=== PATIENT | female | born 1990 | race Caucasian/White ===

== ENCOUNTER 2022-05-29 10:50 | Emergency (ER) | payer OTHER, SELFPAY ==
[2022-05-29 10:58] VITALS: BP 160/104; PULSE 75; RESP 20; TEMP 36.4; O2SAT 96; BMI 26.6
--- NOTE | 2022-05-29 11:04 | ED_ITS ---
HPI - General Adult General Time Seen by Provider: 11:05 Date Seen: 05/29/22 Chief complaint: Nausea/Vomiting Stated complaint: Vomiting blood Time Seen by Provider: 05/29/22 11:04 Source: patient and RN notes reviewed Mode of arrival: ambulatory Limitations: no limitations History of Present Illness HPI narrative: Patient is a 31-year-old female coming in with hematemesis. She states she threw up last night after eating, food came right back up. This morning she had other episodes of emesis. Two had blood in them, her last emesis coming into the parking lot here to be seen in the ED was just yellowish. She notes at least for last couple weeks she has been having nausea and vomiting at night and in the morning. She does get regurgitant episodes where she feels stuff coming up in her throat, this is before any vomiting type symptoms. She has been having problems for weeks per report. She does have looser stools baseline. She had a normal formed stool earlier this morning, a 2nd looser stool that did look a little darker. She has no abdominal pain. She drinks daily, has been drinking vodka, 2 drinks a night. She notes she used to like fireball but that started coming up immediately after drinking it. [facility], was [facility] be [facility] next [facility]. She did call them today and they recommended being seen in our ER per her report. She has never had an EGD before. She states she is quite anxious. Related Data Previous Rx's Medication Instructions Recorded omeprazole 40 mg capsule,delayed 40 mg PO DAILY #14 caps 05/29/22 release ondansetron HCl 4 mg tablet 4 mg PO Q8H PRN nausea and 05/29/22 vomiting #30 tabs Allergies Allergy/AdvReac Type Severity Reaction Status Date / Time No Known Drug Allergies Allergy Verified 05/29/22 11:02 Review of Systems Status of ROS: Reports: 10 or more systems reviewed and unremarkable except as noted in History and below Exam Const: Vital Signs, click to edit/add: Vital Signs - 24 hr 05/29/22 10:58 Temperature 97.5 F L Pulse Rate [Right Pulse Oximeter] 75 Respiratory Rate 20 Blood Pressure [Le ft Upper Arm] 160/104 H Pulse Oximetry 96 Oxygen Delivery Me thod Room Air Documenting provider has reviewed patient's vital signs: yes Common normals: no apparent distress, average body habitus, oriented x3, no limitations and alert General appearance: cooperative, comfortable, well kempt, well developed and anxious HENMT: Common normals: normocephalic, head/scalp atraumatic, hearing grossly normal bilaterally, moist oral mucous membranes, oropharynx normal, dentition normal and gingiva normal Head and scalp: normocephalic and atraumatic Eye: Common normals: PERRL, EOMs intact bilaterally, conjunctivae normal and no scleral icterus Conjunctiva: conjunctiva(e) normal Pupil: PERRL Neck & C-Spine: Common normals: full ROM, no lymphadenopathy, supple, no meningeal signs, no JVD and thyroid normal Thyroid: thyroid normal Resp: Common normals: normal respiratory effort, no retractions, no use of accessory muscles and clear to auscultation bilaterally Auscultation: clear to auscultation bilaterally Cardio: Common normals: no JVD, regular rate, regular rhythm, S1 normal heart sound, S2 normal heart sound, no gallops, no clicks and no murmurs Rate: regular rate Rhythm: regular rhythm Heart sounds: S1 normal and S2 normal GI: Common normals: Normal to inspection, nondistended, normoactive bowel sounds present, soft to palpation, non-tender, no hepatosplenomegaly and no masses Palpation: soft and no hepatosplenomegaly Neuro: Common normals: oriented x3 Sensorium/orientation: alert Meningeal signs: no meningeal signs Psych: Appearance: well kempt Mood and affect: anxious and tearful Course Course Hospital Course: Reviewed with patient that we will get full complement of labs. She is not feeling nauseated at this time. Reviewed with her that there certainly seems to be underlying reflux pathology based on her history. The vomiting that she has been having could have induced a [place] tear, there could be underlying gastritis, underlying ulcer disease, possible affects of alcoholism with consideration for esophageal varices. We will be giving her 80 mg IV Protonix. I have discussed with her that she ultimately will likely need an EGD. Based on her history, her current presentation, do not feel that this needs to happen emergently unless we see further episodes of bleeding or evidence of decompensation. She became quite tearful, stating she did not want anesthesia, was worried she would not wake up. I tried to reassure her spent some time talking about the process of EGD. Again, this will not likely happen today based on the fact that patient is stable at this time but await our workup as well as the fact that we are not set up for emergent EGDs. Reevaluation(s) Reevaluation #1: Nursing staff requested Zofran, 4 mg IV was ordered. Patient reportedly just vomited, no blood noted. Time: 11:33 Reevaluation #2: Reviewed patient's ultrasound report, fatty liver, normal gallbladder. Reviewed her mildly elevated liver transaminases, need for consideration of alcohol cessation, via treatment if needed. Discussed chemical dependency treatment is not something that we place people in, she needs to be willing and want the results of treatment for it to be beneficial. [facility] and they can help assist her on this if need be. She is requesting that we schedule an EGD here, she will contact the [facility] and get this cleared and if not will cancel in go through the [facility]. if her current hematemesis, will need emergent re-evaluation. At this time she is stable for further out patient evaluation. Patient was resting comfortably when I went back in to talk to her. She states she has had 2 episodes of emesis here, none with blood. Time: 13:45 Vital Signs Vital signs: Initial Vital Signs Temperature 97.5 F L 05/29/22 10:58 Temperature Source Temporal Artery Scan 05/29/22 10:58 Pulse Rate 75 05/29/22 10:58 Pulse Rhythm Regular 05/29/22 10:58 Pulse Strength 3+ Normal 05/29/22 10:58 Respiratory Rate 20 05/29/22 10:58 Blood Pressure 160/104 H 05/29/22 10:58 Blood Pressure Mean 122 05/29/22 10:58 Blood Pressure Position Sitting 05/29/22 10:58 Pulse Oximetry 96 05/29/22 10:58 Oxygen Delivery Method Room Air 05/29/22 10:58 Vital Signs Temperature 97.5 F L 05/29/22 10:58 Pulse Rate 75 05/29/22 10:58 Respiratory Rate 20 05/29/22 10:58 Blood Pressure 160/104 H 05/29/22 10:58 Pulse Oximetry 96 05/29/22 10:58 Oxygen Delivery Method Room Air 05/29/22 10:58 Temperature 97.5 F L 05/29/22 10:58 Pulse Rate 75 05/29/22 10:58 Respiratory Rate 20 05/29/22 10:58 Blood Pressure 160/104 H 05/29/22 10:58 Pulse Oximetry 96 05/29/22 10:58 Oxygen Delivery Method Room Air 05/29/22 10:58 Medical Decision Making Lab Data Lab results reviewed: Yes I reviewed the patient's lab results Labs: Lab Results 05/29/22 05/29/22 Range/Units 11:05 11:27 WBC 3.54 L (4.50-11.00) K/uL RBC 3.59 L (4.00-5.20) m/uL Hgb 13.6 (12.0-16.0) gm/dL Hct 39.3 (33.0-51.0) % MCV 110 H (80-100) fL MCH 38 H (26-34) pg MCHC 35 (32-36) gm/dL RDW Coeff of Gunnar 14.5 (11.5-15.5) % Plt Count 236 (140-440) K/uL Neut % (Auto) 63.0 (42.0-72.0) % Lymph % (Auto) 25.7 (20-44) % [place] % (Auto) 9.6 (0.0-11.0) % Eos % (Auto) 0.6 (0.0-7.0) % Baso % (Auto) 1.1 (0.0-3.0) % Neut # (Auto) 2.20 (1.7-7.0) K/uL Lymph # (Auto) 0.90 (0.90-2.90) K/uL [place] # (Auto) 0.30 (0.00-0.90) K/UL Eos # (Auto) 0.00 (0.00-0.50) K/uL Baso # (Auto) 0.00 (0.00-0.30) K/uL INR 0.96 (0.91-1.10) APTT 26 (23-33) Seconds Sodium 140 (135-149) mmol/L Potassium 3.5 L (3.6-5.1) mmol/L Chloride 103 (96-114) mmol/L Carbon Dioxide 27 (20-32) mmol/L BUN 8 (5-24) mg/dL Creatinine 0.5 (0.5-1.5) mg/dL Estimated Creat Clear 134.86 Estimated GFR 129 ml/min Glucose 94 (60-115) mg/dL Lactate 3.3 H (0.5-1.9) mmol/L Calcium 8.7 (8.4-10.6) mg/dL Total Bilirubin 1.0 (0.1-1.5) mg/dL Direct Bilirubin 0.4 (0.0-0.5) mg/dL AST 288 H (12-35) U/L ALT 118 H (4-35) U/L Alkaline Phosphatase 80 (40-150) U/L Ammonia 10.0 L (13.1-30.0) umol/L Total Protein 7.4 (6.0-8.3) g/dL Albumin 4.4 (3.3-5.0) g/dL Lipase 267 (23-300) U/L Urine HCG, Qual Negative (Negative) Ethyl Alcohol 0.05 H (0.01-0.03) % SARS-CoV-2 (PCR) Negative SARS-CoV-2 (Negative) Imaging Data US - abdomen: Attestation: I have reviewed the pertinent imaging results. Radiologist's impression: Patient: AUDELIA HERRERA Facility:?[facility] Patient ID:?[id number] Site Patient ID:?[id number]. Site :?[id number] Study:?US Abdomen -05/29/2022 1:02:29 PM Ordering Physician:Semaj Lara Final Report: Indication: Abnormal liver function tests. Technique: Sonography of the abdomen was performed limited to the structures discussed below Comparison: None Findings: The liver is heterogeneous and hyperechoic with decreased sound through transmission. No focal mass. No biliary ductal dilatation. This pattern is usually due to hepatic steatosis. Gallbladder appears normal. Wall thickness is normal at 1.7 millimeters. No stones, sludge or pericholecystic fluid. No sonographic Perez`s sign. The common duct measures 3 millimeters which is normal. The right kidney is unremarkable. No hydronephrosis. The right kidney measures 11.6 x 4.1 x 4.7 centimeters. Aorta and cava as visualized appear normal. The pancreas is only partially visualized. Areas were obscured by bowel gas and by the dense overlying liver. No abnormalities were observed as visualized. Impression: Abnormal hepatic echogenicity statistically most likely due to fatty infiltration. No focal mass or biliary ductal dilatation. Normal appearing gallbladder. Dictated by Asif Reina MD @ 05/29/2022 1:23:08 PM (Electronic Signature) Critical Care Time Critical Care Time Critical Care Time: No Discharge Plan Discharge Clinical Impression: Nausea & vomiting Condition: Stable Instructions: GERD (Gastroesophageal Reflux Disease) (ED), Acute Nausea and Vomiting (ED), Alcohol Dependence (ED) Additional Instructions: use Zofran as needed to control nausea and vomiting. Take daily omeprazole which should help with any underlying conditions such as GERD, gastritis, ulcer disease. Need to follow-up and have EGD. [facility] within the next 1-2 weeks. Should you have recurrent blood with vomiting, do recommend emergent re-evaluation. Try bland diet, can increase foods as your symptoms allow. Activity Level: No Restrictions Prescriptions: New omeprazole 40 mg capsule,delayed release(DR/EC) 40 mg PO DAILY Qty: 14 0RF ondansetron HCl 4 mg tablet 4 mg PO Q8H PRN (Reason: nausea and vomiting) Qty: 30 0RF Stand Alone Forms: [facility] Info Instructions
[2022-05-29 11:26] LABS: Ur HCG Qualitative* Negative (Negative)
[2022-05-29 11:37] LABS: Lactate* 3.3 mmol/L (0.5-1.9)
[2022-05-29 11:39] LABS: Basophils Percent Auto 1.1 % (0.0-3.0); Eosinophils Percent Auto 0.6 % (0.0-7.0); Hematocrit 39.3 % (33.0-51.0); Hemoglobin* 13.6 gm/dL (12.0-16.0); Lymphocytes Percent Auto 25.7 % (20-44); Mean Corpuscular HGB Conc 35 gm/dL (32-36); Mean Corpuscular Hemoglobin 38 pg (26-34); Mean Corpuscular Volume 110 fL (80-100); Monocytes Percent Auto 9.6 % (0.0-11.0); Platelet Count* 236 K/uL (140-440); RDW Coefficient of Variation % 14.5 % (11.5-15.5); Red Blood Count 3.59 m/uL (4.00-5.20); White Blood Count* 3.54 K/uL (4.50-11.00)
[2022-05-29] MEDS: ONDANSETRON 2 MG/ML inj 4 MG IVP (11:40)
[2022-05-29] MEDS: PANTOPRAZOLE SODIUM 40 MG INJ 80 MG IVP (11:40)
[2022-05-29 11:41] LABS: Slide Review Reflex No
[2022-05-29] MEDS: 0.9 % SODIUM CHLORIDE 1000 ml 1,000 ML IV (11:53)
[2022-05-29 11:57] LABS: Albumin* 4.4 g/dL (3.3-5.0); Chloride* 103 mmol/L (96-114)
[2022-05-29 11:58] LABS: Potassium* 3.5 mmol/L (3.6-5.1); Sodium* 140 mmol/L (135-149)
[2022-05-29 11:59] LABS: Lipase* 267 U/L (23-300)
[2022-05-29 12:00] LABS: Aspartate Amino Transferase* 288 U/L (12-35); Bilirubin Direct* 0.4 mg/dL (0.0-0.5); Blood Urea Nitrogen* 8 mg/dL (5-24); Carbon Dioxide* 27 mmol/L (20-32); Creatinine* 0.5 mg/dL (0.5-1.5); Est. Creatinine Clearance* 134.86; Estimated Glomerular Filt Rate 129 ml/min; Ethanol* 0.05 % (0.01-0.03); Glucose* 94 mg/dL (60-115); Total Protein* 7.4 g/dL (6.0-8.3)
[2022-05-29 12:01] LABS: Alanine Aminotransferase* 118 U/L (4-35); Alkaline Phosphatase* 80 U/L (40-150); Calcium* 8.7 mg/dL (8.4-10.6); INR 0.96 (0.91-1.10); Partial Thromboplastin Time* 26 Seconds (23-33); Prothrombin Time 13.4 Seconds
[2022-05-29 12:17] LABS: SARS PCR* Negative SARS-CoV-2 (Negative)
--- NOTE | 2022-05-29 12:21 | CRLHL7_ITS ---
For Patients: As a result of the Century Cures Act, medical imaging exams and procedure reports are released immediately into your electronic medical record. You may view this report before your referring provider. If you have questions, please contact your health care provider. Indication: Abnormal liver function tests. Technique: Sonography of the abdomen was performed limited to the structures discussed below Comparison: None Findings: The liver is heterogeneous and hyperechoic with decreased sound through transmission. No focal mass. No biliary ductal dilatation. This pattern is usually due to hepatic steatosis. Gallbladder appears normal. Wall thickness is normal at 1.7 millimeters. No stones, sludge or pericholecystic fluid. No sonographic Perez`s sign. The common duct measures 3 millimeters which is normal. The right kidney is unremarkable. No hydronephrosis. The right kidney measures 11.6 x 4.1 x 4.7 centimeters. Aorta and cava as visualized appear normal. The pancreas is only partially visualized. Areas were obscured by bowel gas and by the dense overlying liver. No abnormalities were observed as visualized. Impression: Abnormal hepatic echogenicity statistically most likely due to fatty infiltration. No focal mass or biliary ductal dilatation. Normal appearing gallbladder. Dictated by Asif Reina MD @ 05/29/2022 1:23:08 PM (Electronically Signed)
== END 2022-05-29 14:09 | disposition home or self-care (01) ==
PROVIDERS: Emergency Provider Family Medicine
DX: R11.2 Nausea with vomiting, unspecified (principal)
CPT/HCPCS: 36415; 76705; 80053; 81025; 82077; 82140; 82248; 83605; 83690; 85025; 85610; 85730; 87635; 96374; 96375; 99284; C9113; J2405; J7030

== ENCOUNTER 2023-05-13 18:49 | Outpatient (CLI) | payer OTHER, SELFPAY | END 2023-05-13 18:50 | disposition home or self-care (01) | LOC: AMB 05-23 01:10 | PROVIDERS: Visit Provider Family Medicine | DX: R45.851 Suicidal ideations (principal); F12.129 Cannabis abuse with intoxication, unspecified; F10.90 Alcohol use, unspecified, uncomplicated | CPT/HCPCS: A0425; A0433 ==